=== PATIENT | male | born 1960 | race Caucasian/White ===

== ENCOUNTER 2022-08-08 18:48 | Emergency (ER) | payer MEDICAID ==
[~2022-08-08] VITALS: Ht 172.7 cm; Wt 72.7 kg
[2022-08-08] MEDS ORDERED: LIDOcaine 1% 30ml preserv. free vial SQ STA (19:45)
--- NOTE | 2022-08-08 20:20 | NUR ---
LIDOCANE AT BEDSIDE TABLE WITH
--- NOTE | 2022-08-08 21:06 | NUR ---
unavalible to contact [facility] for transport of patient
--- NOTE | 2022-08-08 21:32 | NUR ---
REPORT GIVEN TO DANE.
--- NOTE | 2022-08-08 21:36 | NUR ---
CALLED [facility] FOR TRANSPORT BACK TO [facility], ETA 30MIN
[2022-08-08 21:48] VITALS: BP 115/78
== END 2022-08-08 21:50 | disposition home or self-care (01) ==
LOC: ER 18:49
DX: S62.334A Displaced fracture of neck of fourth metacarpal bone, right hand, initial encounter for closed fracture (principal); M79.641 Pain in right hand; Z88.8 Allergy status to other drugs, medicaments and biological substances; X58.XXXA Exposure to other specified factors, initial encounter; Y93.89 Activity, other specified; Y92.89 Other specified places as the place of occurrence of the external cause; Y99.8 Other external cause status
CPT/HCPCS: 26605; 73120; 73130; 99284; J3490